=== PATIENT | male | born 1995 | race Two or more races ===

== ENCOUNTER 2016-08-16 12:28 | Emergency (ER) | payer OTHER ==
[2016-08-16 12:50] VITALS: BP 168/92; PULSE 78; RESP 18; TEMP 98.2
--- NOTE | 2016-08-16 12:55 | ED ---
Wound/Laceration HPI - General Chief Complaint: Wound/Laceration Stated Complaint: Arm Laceration Time Seen by Provider: 08/16/16 12:44 Source: patient, RN notes reviewed Mode of arrival: ambulatory Limitations: no limitations - History of Present Illness Initial Comments: Patient is a 21-year-old male presents emergency room for evaluation of right arm laceration. Patient states about a half hour ago, he was working on his car and car part sliced his right forearm. Patient states last tetanus vaccine was about 2 years ago. Patient denies taking any blood thinners. Patient denies any significant pain. Patient denies any tingling in his fingers. Patient denies any other injuries during incident. - Related Data Home Medications Medication Instructions Recorded Confirmed Albuterol Inhaler [Ventolin Hfa 08/02/13 08/02/13 Inhaler] Budesonide/Formoterol Fumarate 08/02/13 08/02/13 [Symbicort 160-4.5 Mcg Inhaler] Cetirizine HCl [Zyrtec] 08/02/13 08/02/13 Lisdexamfetamine Dimesylate 20 mg PO QAM 08/02/13 08/02/13 [Vyvanse] Allergies Allergy/AdvReac Type Severity Reaction Status Date / Time diphenhydramine HCl Allergy Unknown Verified 08/02/13 16:53 [From Benadryl] Review of Systems ROS Statement: Those systems with pertinent positive or pertinent negative responses have been documented in the HPI. ROS Other: All systems not noted in ROS Statement are negative. Past Medical History Past Medical History: Asthma History of Any Multi-Drug Resistant Organisms: None Reported Past Surgical History: No Surgical Hx Reported Past Psychological History: No Psychological Hx Reported Smoking Status: Former smoker Past Alcohol Use History: Occasional Past Drug Use History: None Reported General Exam - General Exam Comments Initial Comments: Sitting in exam room, no acute distress. Limitations: no limitations General appearance: alert, in no apparent distress Head exam: Present: atraumatic, normocephalic, normal inspection Eye exam: Present: normal appearance ENT exam: Present: normal exam Neck exam: Present: normal inspection Respiratory exam: Absent: respiratory distress Right Forearm Wrist exam: Present: full ROM, laceration (5 cm laceration over right forearm). Absent: normal inspection, tenderness, ecchymosis, deformity, crepitus Neuro motor exam: Present: wrist extension intact, thumb opposition intact, thumb IP flexion intact, thumb adduction intact, fingers 2-5 abduction intact Vascular: Present: normal capillary refill (Capillary refill less than 2 seconds ), radial pulse (2+), ulnar pulse (2+). Absent: vascular compromise Back exam: Present: normal inspection Neurological exam: Present: alert, oriented X3, CN II-XII intact, normal gait Psychiatric exam: Present: normal affect, normal mood Skin exam: Present: warm, dry, normal color. Absent: rash Course Vital Signs 08/16/16 12:47 Temperature 98.2 F Pulse Rate 78 Respiratory 18 Rate Blood Pressure 168/92 O2 Sat by Pulse 98 Oximetry Procedures - Laceration Laceration #1 Consent Obtained: verbal consent Indication: laceration Site: other (right forearm) Size (cm): 5 Description: linear Depth: simple, single layer Anesthetic Used: lidocaine 1% Anesthesia Technique: local infiltration Amount (mls): 8 Pre-repair: wound explored, irrigated extensively Type of Sutures: nylon Size of Sutures: 4-0 Number of Sutures: 12 Technique: simple, interrupted Patient Tolerated Procedure: well, no complications Medical Decision Making - Medical Decision Making Patient is a 21-year-old male presents to the emergency room for evaluation of right arm laceration. Laceration repaired with sutures. Patient advised to return in 7-10 days for suture removal. Patient states he understands everything that was discussed with him. Return parameters discussed. Disposition Clinical Impression: Laceration of right upper extremity Disposition: HOME SELF-CARE Condition: Good Instructions: Care For Your Stitches (ED), Laceration (ED) Additional Instructions: Do not soak suture area in water. Clean suture area with a damp cloth. Take Tylenol or Motrin as needed for pain. Please return in 7-10 days for suture removal. Please follow up with primary care provider in 1-2 days. If any new symptom arises or symptoms worsen, return to ER as soon as possible. Referrals: None,Stated [Primary Care Provider] - 1-2 days Time of Disposition: 13:37
== END 2016-08-16 13:44 | disposition home or self-care (01) ==
LOC: EC 12:28
DX: S51.811A Laceration without foreign body of right forearm, initial encounter (principal); J45.909 Unspecified asthma, uncomplicated; Z87.891 Personal history of nicotine dependence; Z79.51 Long term (current) use of inhaled steroids; Z79.899 Other long term (current) drug therapy; Z88.8 Allergy status to other drugs, medicaments and biological substances; W45.8XXA Other foreign body or object entering through skin, initial encounter; Y93.89 Activity, other specified
CPT/HCPCS: 12002; 99282